=== PATIENT | female | born 1985 | race African-American/Black ===

== ENCOUNTER 2016-11-16 12:45 | Outpatient (CLI) | payer OTHER ==
[~2016-11-16] VITALS: Ht 160 cm; Wt 72.5 kg
[~2016-11-16 12:45] MED LIST: ANTIBIOTIC; GLUCOPHAGE
[2016-11-16 13:35] VITALS: Ht 160 cm; Wt 72.5 kg
[2016-11-16 14:16] VITALS: BP 96/71; PULSE 79; RESP 18
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
[2016-11-16 14:52] LABS: BARBITURATES Negative (NEGATIVE); BENZODIAZEPINES Negative (NEGATIVE); COCAINE Negative (NEGATIVE); OPIATES Negative (NEGATIVE)
[2016-11-16 14:56] LABS: CANNABINOIDS Positive (NEGATIVE)
[2016-11-16] MEDS ORDERED: PRENAT PO (18:19)
[2016-11-16] MEDS ORDERED: FERR325C PO (18:21)
[2016-11-16] MEDS ORDERED: CALC600T11 PO (18:21)
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
== END 2016-11-16 18:25 | disposition home or self-care (01) ==
LOC: L-D 12:45 → OBT 12:45 → L-D 13:18 → OBT 18:25
PROVIDERS: ATTEND Obstetrics & Gynecology Obstetrics
DX: O9A.213 Injury, poisoning and certain other consequences of external causes complicating pregnancy, third trimester (principal); Z3A.38 38 weeks gestation of pregnancy; V43.62XA Car passenger injured in collision with other type car in traffic accident, initial encounter; Y92.410 Unspecified street and highway as the place of occurrence of the external cause
CPT/HCPCS: 36415; 76818; 80307; 85460; 86900; 86901; Z7500; G0463